=== PATIENT | female | born 1960 | race African-American/Black ===

== ENCOUNTER → 2019-12-04 | Emergency (ER) | payer OTHER ==
[~2019-12-04] VITALS: Ht 149.9 cm; Wt 63.0 kg
[~2019-12-04] MED LIST: METO25TA93 PO
[2019-12-04 19:36] LABS: Basophils # (auto) 0 10 ^3/uL (0-0.2); Basophils % (auto) 0.5 % (0.0-2.0); Eosinophils # (auto) 0 10 ^3/uL (0-0.8); Eosinophils % (auto) 0.4 % (0.0-7.0); Hematocrit 42.8 % (36.0-46.0); Hemoglobin 14.2 g/dL (12.2-16.2); Lymphocytes # (auto) 1.5 10 ^3/uL (0.4-5.4); Lymphocytes % (auto) 23.6 % (10.0-50.0); Mean Corpuscular Hemoglobin 28.9 pg (28.0-32.0); Mean Corpuscular Hgb Conc. 33.2 g/dL (32.0-36.0); Monocytes # (auto) 0.7 10 ^3/uL (0-1.3); Neutrophils # (auto) 4.3 10 ^3/uL (1.6-8.6); Neutrophils % (auto) 65.5 % (37.0-80.0); Nucleated Red Blood Cells % 0.1 %; Platelet Count (auto) 318 10^3/uL (140-450); Red Blood Cells 4.92 10^6/uL (4.0-5.20); Red Cell Distribution Width 14.3 % (11.8-14.3); White Blood Cell 6.6 10^3/uL (4.4-10.8)
[2019-12-04 19:48] LABS: Albumin 3.7 g/dL (3.4-5.0); Anion Gap 7 (5-15); Blood Urea Nitrogen 11 mg/dL (7-18); Calcium 9.3 mg/dL (8.5-10.1); Carbon Dioxide 25 mmol/L (21-32); Chloride 108 mmol/L (98-107); Glucose 98 mg/dL (74-106); Potassium 3.8 mmol/L (3.5-5.1); Sodium 140 mmol/L (136-145)
[2019-12-04 19:50] LABS: Alanine Aminotransferase 18 U/L (13-56); Aspartate Aminotransferase 17 U/L (15-37); BUN/Creatinine Ratio 11.2; GFR African American 74 mL/min; GFR Non-African American 62 mL/min
[2019-12-04 19:55] LABS: Alkaline Phosphatase 75 U/L (45-117); Bilirubin, Total 0.4 mg/dL (0.2-1.0); Total Protein 7.9 g/dL (6.4-8.2)
[2019-12-04 20:00] VITALS: BP 151/85
== END | disposition home or self-care (01) ==
LOC: EDUNIT# 18:46 → EDBD 18:54 → ER 18:54
DX: J01.00 Acute maxillary sinusitis, unspecified (principal); H10.33 Unspecified acute conjunctivitis, bilateral; I10 Essential (primary) hypertension; Z88.5 Allergy status to narcotic agent
CPT/HCPCS: 36415; 70450; 80053; 84484; 85025; 93005

== ENCOUNTER 2020-02-12 08:36 | Emergency (ER) | payer OTHER ==
[~2020-02-12] VITALS: Ht 177.8 cm; Wt 61.2 kg
[2020-02-12 09:20] LABS: Basophils # (auto) 0 10 ^3/uL (0-0.2); Basophils % (auto) 0.7 % (0.0-2.0); Eosinophils # (auto) 0 10 ^3/uL (0-0.8); Eosinophils % (auto) 0.8 % (0.0-7.0); Hematocrit 43.6 % (36.0-46.0); Hemoglobin 14.3 g/dL (12.2-16.2); Lymphocytes # (auto) 1.5 10 ^3/uL (0.4-5.4); Lymphocytes % (auto) 33.2 % (10.0-50.0); Mean Corpuscular Hemoglobin 28.9 pg (28.0-32.0); Mean Corpuscular Hgb Conc. 32.8 g/dL (32.0-36.0); Mean Corpuscular Volume 88.1 fL (80.0-100.0); Monocytes # (auto) 0.4 10 ^3/uL (0-1.3); Monocytes % (auto) 8.2 % (0.0-12.0); Neutrophils # (auto) 2.6 10 ^3/uL (1.6-8.6); Neutrophils % (auto) 57.1 % (37.0-80.0); Nucleated Red Blood Cells % 0.2 %; Platelet Count (auto) 298 10^3/uL (140-450); Red Blood Cells 4.95 10^6/uL (4.0-5.20); Red Cell Distribution Width 14.2 % (11.8-14.3); White Blood Cell 4.6 10^3/uL (4.4-10.8)
[2020-02-12 09:42] LABS: INR 1.01 (0.9-1.15); Partial Thromboplastin Time 28.7 sec (23.64-32.05)
[2020-02-12 09:43] LABS: Albumin 3.9 g/dL (3.4-5.0); Anion Gap 6 (5-15); Blood Urea Nitrogen 8 mg/dL (7-18); Carbon Dioxide 25 mmol/L (21-32); Chloride 107 mmol/L (98-107); Glucose 128 mg/dL (74-106); Sodium 138 mmol/L (136-145)
[2020-02-12 09:50] LABS: Alanine Aminotransferase 20 U/L (13-56); Alkaline Phosphatase 63 U/L (45-117); Aspartate Aminotransferase 18 U/L (15-37); BUN/Creatinine Ratio 8.6; Bilirubin, Total 0.8 mg/dL (0.2-1.0); GFR African American 79 mL/min; GFR Non-African American 65 mL/min; Total Protein 7.8 g/dL (6.4-8.2)
[2020-02-12 11:02] LABS: Urine Bacteria FEW /hpf (None Seen); Urine Blood Negative /uL (Negative); Urine Hyaline Cast FEW /lpf (0 - 2); Urine Mucus FEW (None Seen); Urine Specific Gravity 1.017 (1.001-1.035); Urine WBC 40 /hpf (0 - 5)
[2020-02-12 12:04] VITALS: BP 148/85
== END 2020-02-12 12:07 | disposition home or self-care (01) ==
LOC: ER 08:36
DX: R00.2 Palpitations (principal); I10 Essential (primary) hypertension; N39.0 Urinary tract infection, site not specified; Z88.5 Allergy status to narcotic agent; Z88.8 Allergy status to other drugs, medicaments and biological substances
CPT/HCPCS: 36415; 71046; 80053; 81001; 83880; 84443; 84484; 85025; 85610; 85730; 93005

== ENCOUNTER 2020-06-18 10:26 | Emergency (ER) | payer OTHER ==
[~2020-06-18] VITALS: Ht 147.3 cm; Wt 58.1 kg
[2020-06-18 10:50] VITALS: BP 170/98
[2020-06-18] MEDS ORDERED: cefTRIAXone SOD 1,000 MG VL IM ONE (11:45)
== END 2020-06-18 12:18 | disposition home or self-care (01) ==
LOC: ER 10:26
DX: J03.90 Acute tonsillitis, unspecified (principal); I10 Essential (primary) hypertension; Z79.899 Other long term (current) drug therapy; Z88.5 Allergy status to narcotic agent; Z88.6 Allergy status to analgesic agent
CPT/HCPCS: 96372; 99283; J0696

== ENCOUNTER 2021-03-13 19:26 | Emergency (ER) | payer OTHER ==
[~2021-03-13] VITALS: Ht 157.5 cm; Wt 59.0 kg
[2021-03-13 21:12] LABS: Basophils # (auto) 0 10 ^3/uL (0-0.2); Basophils % (auto) 0.5 % (0.0-2.0); Eosinophils # (auto) 0 10 ^3/uL (0-0.8); Eosinophils % (auto) 0.5 % (0.0-7.0); Hematocrit 43.6 % (36.0-46.0); Hemoglobin 14.4 g/dL (12.2-16.2); Lymphocytes # (auto) 1.9 10 ^3/uL (0.4-5.4); Lymphocytes % (auto) 33.9 % (10.0-50.0); Mean Corpuscular Hemoglobin 29.3 pg (28.0-32.0); Mean Corpuscular Volume 88.9 fL (80.0-100.0); Monocytes # (auto) 0.4 10 ^3/uL (0-1.3); Monocytes % (auto) 7.4 % (0.0-12.0); Neutrophils # (auto) 3.2 10 ^3/uL (1.6-8.6); Neutrophils % (auto) 57.7 % (37.0-80.0); Nucleated Red Blood Cells % 0.1 %; Red Blood Cells 4.91 10^6/uL (4.0-5.20); Red Cell Distribution Width 14.3 % (11.8-14.3); White Blood Cell 5.6 10^3/uL (4.4-10.8)
[2021-03-13 21:39] LABS: Albumin 3.9 g/dL (3.4-5.0); Anion Gap 6 (5-15); Blood Urea Nitrogen 12 mg/dL (7-18); Calcium 9.4 mg/dL (8.5-10.1); Carbon Dioxide 25 mmol/L (21-32); Chloride 108 mmol/L (98-107); Glucose 134 mg/dL (74-106); Magnesium 2.6 mg/dL (1.6-2.6); Potassium 4.3 mmol/L (3.5-5.1); Sodium 139 mmol/L (136-145)
[2021-03-13 21:46] LABS: Alanine Aminotransferase 23 U/L (13-56); Alkaline Phosphatase 64 U/L (45-117); Aspartate Aminotransferase 21 U/L (15-37); Bilirubin, Total 0.5 mg/dL (0.2-1.0); GFR African American 93 mL/min; GFR Non-African American 77 mL/min; Total Protein 8.1 g/dL (6.4-8.2)
[2021-03-14 00:09] VITALS: BP 145/82
== END 2021-03-14 00:10 | disposition home or self-care (01) ==
LOC: EDUNIT# 19:26 → ER 19:26 → EDBD 19:26 → ER 03-14 00:10
DX: R55 Syncope and collapse (principal); I10 Essential (primary) hypertension; R42 Dizziness and giddiness; Z90.49 Acquired absence of other specified parts of digestive tract; Z90.710 Acquired absence of both cervix and uterus; Z79.899 Other long term (current) drug therapy; Z88.5 Allergy status to narcotic agent; Z88.8 Allergy status to other drugs, medicaments and biological substances
CPT/HCPCS: 36415; 70450; 70486; 71045; 80053; 83735; 84484; 85025; 93005

== ENCOUNTER 2021-11-02 09:42 | Emergency (ER) | payer OTHER ==
[~2021-11-02] VITALS: Ht 147.3 cm; Wt 59.0 kg
[2021-11-02 12:59] VITALS: BP 148/85
[2021-11-02] MEDS ORDERED: PRED10TA PO (14:47)
[2021-11-02] MEDS ORDERED: AMOX-277 PO (14:47)
== END 2021-11-02 14:51 | disposition home or self-care (01) ==
LOC: ER 09:42
DX: J06.9 Acute upper respiratory infection, unspecified (principal); I10 Essential (primary) hypertension; Z90.49 Acquired absence of other specified parts of digestive tract; Z90.710 Acquired absence of both cervix and uterus; Z20.822 Contact with and (suspected) exposure to COVID-19
CPT/HCPCS: 36415; 71046

== ENCOUNTER 2023-02-21 07:10 | Emergency (ER) | payer OTHER ==
[~2023-02-21] VITALS: Ht 147.3 cm; Wt 49.8 kg
[~2023-02-21 07:10] MED LIST changes: +AMOX875T4 PO; +AUG875T PO; +CIP03OS EACHEYE; +PRED10TA PO; +PRED20TA2 PO
[2023-02-21 07:21] VITALS: BP 151/89; PULSE 89; TEMP 98.1
[2023-02-21] MEDS ORDERED: PRED20TA2 PO (08:27)
[2023-02-21] MEDS ORDERED: FLUT1SPR5 (08:27)
[2023-02-21] MEDS ORDERED: GENT0.3S10 EACHEYE (08:27)
[2023-02-21] MEDS ORDERED: AUG875T PO (08:27)
[2023-02-21] MEDS ORDERED: ALBUAER3 IN (08:27)
[2023-02-21] MEDS ORDERED: ALBUTEROL SULF 2.5 MG/0.5ML(0.5%) NEB SOLN NEB ONE (08:30)
[2023-02-21] MEDS ORDERED: IPRATROPIUM BROM 0.5 MG/2.5ML INH SOL NEB ONE (08:30)
[2023-02-21] MEDS ORDERED: DexAMETHasone SOD PHOS 10MG/1ML VIAL INJ IM ONE (08:30)
[2023-02-21 09:28] VITALS: RESP 14; O2SAT 98
== END 2023-02-21 09:39 | disposition home or self-care (01) ==
LOC: ER 07:10
DX: J01.90 Acute sinusitis, unspecified (principal); J40 Bronchitis, not specified as acute or chronic; H10.33 Unspecified acute conjunctivitis, bilateral; B00.1 Herpesviral vesicular dermatitis; I10 Essential (primary) hypertension; Z90.49 Acquired absence of other specified parts of digestive tract; Z90.710 Acquired absence of both cervix and uterus; Z98.51 Tubal ligation status
CPT/HCPCS: 94640; 96372; 99283; J1100; J7644

== ENCOUNTER 2023-03-11 08:23 | Emergency (ER) | payer OTHER ==
[~2023-03-11] VITALS: Ht 147.3 cm; Wt 57.7 kg
[~2023-03-11 08:23] MED LIST changes: +ALBUAER3 IN; +FLUT1SPR5; +GENT0.3S10 EACHEYE
[2023-03-11 08:51] VITALS: BP 170/96; PULSE 99; RESP 18; TEMP 97.8; O2SAT 99
[2023-03-11] MEDS ORDERED: cefTRIAXone SOD 1,000 MG VL IM ONE (09:45)
[2023-03-11] MEDS ORDERED: AZIT-81 PO (09:56)
[2023-03-11] MEDS ORDERED: PROM1SOL4 PO (09:56)
== END 2023-03-11 10:14 | disposition home or self-care (01) ==
LOC: ER 08:23
DX: J03.90 Acute tonsillitis, unspecified (principal); J06.9 Acute upper respiratory infection, unspecified; I10 Essential (primary) hypertension; Z88.6 Allergy status to analgesic agent; Z88.5 Allergy status to narcotic agent; Z79.899 Other long term (current) drug therapy; Z90.49 Acquired absence of other specified parts of digestive tract; Z90.710 Acquired absence of both cervix and uterus; Z98.891 History of uterine scar from previous surgery
CPT/HCPCS: 71046; 96372; 99283; J0696

== ENCOUNTER 2024-01-21 17:14 | Emergency (ER) | payer OTHER ==
[~2024-01-21] VITALS: Ht 147.3 cm; Wt 60.7 kg
[~2024-01-21 17:14] MED LIST changes: +AZIT-185 PO; +PROM1SOL4 PO
[2024-01-21 18:50] LABS: Basophils # (auto) 0 10 ^3/uL (0-0.2); Basophils % (auto) 0.5 % (0.0-2.0); Eosinophils # (auto) 0 10 ^3/uL (0-0.8); Eosinophils % (auto) 0.6 % (0.0-7.0); Hematocrit 41.9 % (36.0-46.0); Hemoglobin 13.8 g/dL (12.2-16.2); Lymphocytes # (auto) 1.9 10 ^3/uL (0.4-5.4); Lymphocytes % (auto) 37.7 % (10.0-50.0); Mean Corpuscular Hemoglobin 29.4 pg (28.0-32.0); Mean Corpuscular Hgb Conc. 32.9 g/dL (32.0-36.0); Mean Corpuscular Volume 89.2 fL (80.0-100.0); Monocytes # (auto) 0.4 10 ^3/uL (0-1.3); Neutrophils # (auto) 2.7 10 ^3/uL (1.6-8.6); Neutrophils % (auto) 53.2 % (37.0-80.0); Nucleated Red Blood Cells % 0.1 %; Red Blood Cells 4.69 10^6/uL (4.0-5.20); Red Cell Distribution Width 13.9 % (11.8-14.3)
[2024-01-21 18:55] LABS: Alanine Aminotransferase 18 U/L (7-40); Albumin 4.7 g/dL (3.2-4.8); Alkaline Phosphatase 68 U/L (46-116); Anion Gap 7 (5-15); Aspartate Aminotransferase 22 U/L (13-40); BUN/Creatinine Ratio 8.4 (10.0-20.0); Bilirubin, Total 0.7 mg/dL (0.2-1.0); Blood Urea Nitrogen 7 mg/dL (9-23); Calcium 10.1 mg/dL (8.5-10.1); Carbon Dioxide 26 mmol/L (20-30); Chloride 106 mmol/L (98-107); Glucose 98 mg/dL (74-106); Potassium 3.7 mmol/L (3.5-5.1); Sodium 139 mmol/L (136-145); Total Protein 7.2 g/dL (5.7-8.2)
[2024-01-21 19:29] LABS: Urine Bacteria None Seen /hpf (None Seen)
[2024-01-21 19:42] LABS: Urine Blood TRACE /uL (Negative); Urine Clarity Clear (Clear); Urine Color Colorless (Yellow); Urine Protein, UAD Negative (Negative); Urine Specific Gravity 1.004 (1.001-1.035); Urine Urobilinogen Normal (Negative); Urine WBC 6 /hpf (0 - 5)
[2024-01-21] MEDS ORDERED: AUG875T PO (19:51)
[2024-01-21] MEDS ORDERED: IBUP-1455 PO (19:51)
[2024-01-21] MEDS ORDERED: GUAI600T78 PO (19:51)
[2024-01-21] MEDS: cefTRIAXone W LIDOCAINE 1 GM IM IM ONE (20:00)
[2024-01-21] MEDS: cefTRIAXone SOD 1,000 MG VL IM ONE (20:08)
[2024-01-21 20:13] VITALS: BP 160/87; PULSE 79; RESP 18; TEMP 98.6; O2SAT 98
== END 2024-01-21 20:15 | disposition home or self-care (01) ==
LOC: ER 17:14
DX: J32.9 Chronic sinusitis, unspecified (principal); R07.9 Chest pain, unspecified; I10 Essential (primary) hypertension; Z90.49 Acquired absence of other specified parts of digestive tract; Z98.51 Tubal ligation status
CPT/HCPCS: 36415; 71045; 80053; 81001; 84484; 85025; 93005; 96372; 99285; J0696

== ENCOUNTER → 2025-04-09 | Emergency (ER) | payer OTHER ==
[~2025-04-09] VITALS: Ht 147.3 cm; Wt 58.9 kg
[~2025-04-09] MED LIST changes: +GUAI600T78 PO; +IBUP-1455 PO
[2025-04-09 08:43] VITALS: BP 151/91; PULSE 82; RESP 17; TEMP 99; O2SAT 98
== END | disposition left against medical advice (07) ==
LOC: ER 08:41
DX: R09.81 Nasal congestion (principal)